=== PATIENT | female | born 1990 | race African-American/Black ===

== ENCOUNTER 2017-10-23 12:35 | Emergency (ER) | payer BC ==
[~2017-10-23] VITALS: Ht 175.3 cm; Wt 78.0 kg
[2017-10-23 16:40] VITALS: BP 142/62
== END 2017-10-23 17:21 | disposition home or self-care (01) ==
LOC: ER 13:48
DX: M25.511 Pain in right shoulder (principal); M25.512 Pain in left shoulder
CPT/HCPCS: 71045; 73030; 81025; 99284